=== PATIENT | male | born 1960 | race African-American/Black ===

== ENCOUNTER 2020-02-05 14:48 | Emergency (ER) | payer MEDICAID ==
[~2020-02-05] VITALS: Ht 177.8 cm; Wt 100.0 kg
[2020-02-05] MEDS ORDERED: ENALAPRIL 2.5MG/2ML VIAL 2ML IV ONE (16:00)
[2020-02-05 16:52] LABS: BASOPHILS % 0.3 % (0.0-2.0); EOSINOPHILS % 0.6 % (0.0-5.0); HEMATOCRIT. 48.9 % (42.0-52.0); HEMOGLOBIN. 16.3 g/dL (14.0-18.0); LYMPHOCYTES % 19.1 % (20.0-50.0); MEAN CORPUSCULAR HEMOGLOBIN 29.7 pg (28.0-32.0); MEAN CORPUSCULAR VOLUME 88.9 fL (80.0-94.0); MEAN PLATELET VOLUME 9.7 fl (7.4-10.4); MONOCYTES % 9.2 % (2.0-8.0); NEUTROPHILS % 70.8 % (40.0-76.0); PLATELET 254 x1000/uL (130-400); RED CELL DISTRIBUTION WIDTH 14.6 % (11.6-14.6)
[2020-02-05 16:55] LABS: CHLORIDE 109 mEq/L (98-107); PROTHROMBIN TIME 10.9 sec (9.6-11.0)
[2020-02-05 17:01] LABS: ETHANOL BLOOD < 10 mg/dL
[2020-02-05 17:03] LABS: LDL CHOLESTEROL 79 mg/dL (5-100)
[2020-02-05 17:05] LABS: CREATINE KINASE 284 IU/L (39-308)
[2020-02-05 17:38] LABS: CLARITY URINE CLEAR (CLEAR); COLOR URINE DK YELLOW (YELLOW); KETONES URINE TRACE (NEGATIVE); LEUKOCYTE ESTERASE URINE TRACE (NEGATIVE); NITRITE URINE NEGATIVE (NEGATIVE); OCCULT BLOOD URINE NEGATIVE (NEGATIVE); PH URINE 5.5 (4.5-8.0); PROTEIN URINE NEGATIVE (NEGATIVE); SPECIFIC GRAVITY URINE 1.028 (1.005-1.030)
[2020-02-05 17:58] LABS: *AMPHETAMINES SCREEN URINE NEGATIVE (NEGATIVE); *BARBITURATES SCREEN URINE NEGATIVE (NEGATIVE); *BENZODIAZEPINES SCREEN URINE NEGATIVE (NEGATIVE)
[2020-02-05 17:59] LABS: *COCAINE SCREEN URINE NEGATIVE (NEGATIVE); CANNABINOID URINE SCREEN PRESUMTIVE POSITIVE (NEGATIVE); METHADONE URINE SCREEN NEGATIVE (NEGATIVE); OPIATES URINE SCREEN NEGATIVE (NEGATIVE); PHENCYCLIDINE URINE SCREEN NEGATIVE (NEGATIVE)
[2020-02-05 19:00] VITALS: BP 146/100
== END 2020-02-05 19:24 | disposition home or self-care (01) ==
LOC: ER 14:59
DX: R53.1 Weakness (principal); I10 Essential (primary) hypertension; Z86.73 Personal history of transient ischemic attack (TIA), and cerebral infarction without residual deficits
CPT/HCPCS: 36415; 70450; 71045; 80053; 80305; 80320; 81003; 82550; 83721; 83880; 84484; 85025; 85610; 93005; 96374; 99285; J3490; G0480